=== PATIENT | female | born 1985 | race African-American/Black ===

== ENCOUNTER 2017-02-28 20:03 | Emergency (ER) | payer MEDICAID, OTHER ==
[~2017-02-28] VITALS: Ht 160 cm; Wt 117.3 kg
[2017-02-28 22:44] VITALS: BP 134/70
== END 2017-02-28 23:08 | disposition home or self-care (01) ==
LOC: EMS 20:04
DX: N61.1 Abscess of the breast and nipple (principal); N61.0 Mastitis without abscess; Z88.0 Allergy status to penicillin; Z88.5 Allergy status to narcotic agent
CPT/HCPCS: 99284